=== PATIENT | male | born 1965 | race Caucasian/White ===

== ENCOUNTER 2021-04-17 11:11 | Day surgery (SDC) | payer MEDICARE, MEDICAID ==
[2021-04-17] MEDS ORDERED: Depo-Medrol 40 MG/ML IM ONE (11:12)
[2021-04-17] MEDS ORDERED: LIDOCAINE HCL 2% 100 MG/5 ML IJ ONE (11:12)
[2021-04-17] MEDS ORDERED: DIPRIVAN 200 MG/20 ML IV ONE (12:09)
[2021-04-17] MEDS ORDERED: ROBINUL ONE (12:29)
[2021-04-17] MEDS ORDERED: Lactated Ringers 1,000 ML IV ONE (15:57)
--- NOTE | 2021-04-18 11:53 | XRAY ---
12 seconds fluoroscopy time in surgery for bilateral L4-S1 MBB.
--- NOTE | 2021-04-21 00:10 | XRAY ---
Indication: Bilateral L4-S1 MBB. Intraoperative fluoroscopy was provided for 12 seconds. A single digital spot image submitted for interpretation demonstrates posterior spinal needle tips projected over the expected course of the left and right L4-S1 nerve roots. Correlate with intraoperative findings/report.
== END 2021-04-17 12:50 | disposition home or self-care (01) ==
LOC: SDC-PAIN 11:11
PROVIDERS: ATTEND Psychiatry & Neurology Pain Medicine
DX: M47.816 Spondylosis without myelopathy or radiculopathy, lumbar region (principal); Z79.899 Other long term (current) drug therapy
CPT/HCPCS: 64493; 64494; 72020; 77002; J1030; J2704

== ENCOUNTER 2021-06-19 12:53 | Day surgery (SDC) | payer MEDICARE, MEDICAID ==
[2021-06-19] MEDS ORDERED: Depo-Medrol 40 MG/ML IM ONE (12:54)
[2021-06-19] MEDS ORDERED: BUPIVACAINE 0.5% VIAL IJ ONE (12:54)
[2021-06-19] MEDS ORDERED: DIPRIVAN 200 MG/20 ML IV ONE (15:13)
[2021-06-19] MEDS ORDERED: Lactated Ringers 1,000 ML IV ONE (15:23)
--- NOTE | 2021-06-19 16:39 | XRAY ---
Indication: Bilateral L4-S1 MBB. Intraoperative fluoroscopy provided for 12 seconds. Single digital spot image submitted for interpretation demonstrates posterior needle tips projecting over the expected left and right L4-S1 nerve roots. Correlate with intraoperative findings/report.
--- NOTE | 2021-06-19 16:44 | XRAY ---
12 seconds fluoroscopy time in surgery for bilateral L4-S1 MBB.
== END 2021-06-19 15:35 | disposition home or self-care (01) ==
LOC: SDC-PAIN 12:53
PROVIDERS: ATTEND Psychiatry & Neurology Pain Medicine
DX: M47.816 Spondylosis without myelopathy or radiculopathy, lumbar region (principal); Z79.899 Other long term (current) drug therapy
CPT/HCPCS: 64493; 64494; 72020; 77002; J1030; J2704

== ENCOUNTER 2021-11-13 14:20 | Day surgery (SDC) | payer MEDICARE ==
[2021-11-13] MEDS ORDERED: Depo-Medrol 40 MG/ML IM ONE (14:21)
[2021-11-13] MEDS ORDERED: BUPIVACAINE 0.5% VIAL IJ ONE (14:21)
[2021-11-13] MEDS ORDERED: Xylocaine 1% Vial 30 ML PF IJ ONE (14:21)
[2021-11-13] MEDS ORDERED: Lactated Ringers 1,000 ML IV ONE (16:03)
[2021-11-13] MEDS ORDERED: DIPRIVAN 200 MG/20 ML IV ONE (17:00)
--- NOTE | 2021-11-13 19:21 | XRAY ---
Indication: Left L4-S1 RFA. Intraoperative fluoroscopy provided for 31 seconds. 3 digital spot image submitted for interpretation demonstrates posterior needle tips projecting over the expected left L4-S1 nerve roots. Correlate with intraoperative findings/report.
--- NOTE | 2021-11-14 09:22 | XRAY ---
31 seconds fluoroscopy time in surgery for left L4-S1 RFA.
== END 2021-11-13 17:30 | disposition home or self-care (01) ==
LOC: SDC-PAIN 14:20
PROVIDERS: ATTEND Psychiatry & Neurology Pain Medicine
DX: M47.816 Spondylosis without myelopathy or radiculopathy, lumbar region (principal); Z79.899 Other long term (current) drug therapy
CPT/HCPCS: 64635; 64636; 72100; 77002; J1030; J2001; J2704

== ENCOUNTER 2021-11-27 14:12 | Day surgery (SDC) | payer MEDICARE ==
[2021-11-27] MEDS ORDERED: Xylocaine 1% Vial 30 ML PF IJ ONE (14:13)
[2021-11-27] MEDS ORDERED: BUPIVACAINE 0.5% VIAL IJ ONE (14:13)
[2021-11-27] MEDS ORDERED: Depo-Medrol 40 MG/ML IM ONE (14:13)
[2021-11-27] MEDS ORDERED: Lactated Ringers 1,000 ML IV ONE (15:52)
[2021-11-27] MEDS ORDERED: DIPRIVAN 200 MG/20 ML IV ONE (16:41)
--- NOTE | 2021-11-27 18:28 | XRAY ---
Indication: Right L4-S1 RFA. Intraoperative fluoroscopy provided for 26 seconds. 3 digital spot image submitted for interpretation demonstrates posterior needle tips projecting over the expected right L4-S1 nerve roots. Correlate with intraoperative findings/report.
--- NOTE | 2021-11-28 08:35 | XRAY ---
26 seconds fluoroscopy time in surgery for right L4-S1 RFA.
== END 2021-11-27 17:15 | disposition home or self-care (01) ==
LOC: SDC-PAIN 14:12
PROVIDERS: ATTEND Psychiatry & Neurology Pain Medicine
DX: M47.816 Spondylosis without myelopathy or radiculopathy, lumbar region (principal); Z79.899 Other long term (current) drug therapy
CPT/HCPCS: 64635; 64636; 72100; 77002; J1030; J2001; J2704

== ENCOUNTER 2022-05-07 07:48 | Day surgery (SDC) | payer MEDICARE ==
[2022-05-07] MEDS ORDERED: Depo-Medrol 40 MG/ML IM ONE (07:49)
[2022-05-07] MEDS ORDERED: Marcaine Mpf 0.5% Vial 30 Ml IJ ONE (07:49)
[2022-05-07] MEDS ORDERED: DIPRIVAN 200 MG/20 ML IV ONE (08:32)
[2022-05-07] MEDS ORDERED: Lactated Ringers 1,000 ML IV ONE (10:58)
--- NOTE | 2022-05-07 17:29 | XRAY ---
Indication: Bilateral SI joint injection. Intraoperative fluoroscopy provided for 20 seconds. 4 digital spot image submitted for interpretation demonstrates posterior needle tip projecting over the left and right SI joints. Correlate with intraoperative findings/report.
--- NOTE | 2022-05-07 17:44 | XRAY ---
20 seconds of fluoroscopy was used in surgery for a bilateral sacroiliac joint injection.
== END 2022-05-07 09:00 | disposition home or self-care (01) ==
LOC: SDC-PAIN 07:48
PROVIDERS: ATTEND Psychiatry & Neurology Pain Medicine
DX: M46.1 Sacroiliitis, not elsewhere classified (principal); Z79.899 Other long term (current) drug therapy
CPT/HCPCS: 27096; 72202; 77002; G0260; J1030; J2704